=== PATIENT | female | born 1985 | race Caucasian/White ===

== ENCOUNTER 2016-09-18 17:39 | Emergency (ER) | payer OTHER | END 2016-09-18 18:25 | disposition home or self-care (01) | LOC: ER 17:39 | DX: J18.9 Pneumonia, unspecified organism (principal); Z88.1 Allergy status to other antibiotic agents ==

== ENCOUNTER 2016-09-29 16:34 | Emergency (ER) | payer OTHER | END 2016-09-29 17:39 | disposition home or self-care (01) | LOC: ER 16:34 | DX: J20.9 Acute bronchitis, unspecified (principal); F17.210 Nicotine dependence, cigarettes, uncomplicated; Z88.1 Allergy status to other antibiotic agents | CPT/HCPCS: 36415; 87502; 96374 ==